=== PATIENT | female | born 1995 | race Caucasian/White ===

== ENCOUNTER 2016-08-25 11:29 | Emergency (ER) | payer BC ==
[2016-08-25 12:06] VITALS: BP 95/61
--- NOTE | 2016-08-25 12:42 | UC ---
Throat Pain/Nasal Fernando HPI - HPI Summary HPI Summary: complaint of nasal congestion and cough that started 11 days ago sore throat for the first 4 days bilateral ear pain intermittent headaches for the last 3 days she has pain in her left teeth , left side of face and forehead denies fever and chills, N/Vd, muscle achiness has been taking gabriel-seltzer sinus without relief, mucinex and nyquil which is helpful - History of Current Complaint Chief Complaint: UCRespiratory Stated Complaint: SINUS Time Seen by Provider: 08/25/16 12:36 Hx Obtained From: Patient Hx Last Menstrual Period: 08/10/16 - Allergies/Home Medications Allergies/Adverse Reactions: Allergies Allergy/AdvReac Type Severity Reaction Status Date / Time No Known Allergies Allergy Verified 08/25/16 12:07 Home Medications: Home Medications Norgestimate-Eth Estradiol(NF) [Ortho Tri-Cyclen (NF)] 1 tab PO DAILY 08/25/16 [ History Confirmed 08/25/16] PMH/Surg Hx/FS Hx/Imm Hx Previously Healthy: Yes - Surgical History Surgical History: None - Family History Known Family History: Positive: Hypertension - mother Negative: Cardiac Disease, Diabetes - Social History Occupation: Student Alcohol Use: Occasionally Substance Use Type: None Smoking Status (MU): Never Smoked Tobacco Review of Systems Constitutional: Negative Skin: Negative Eyes: Negative ENT: Sore Throat, Ear Ache, Nasal Discharge Respiratory: Cough Cardiovascular: Negative Gastrointestinal: Negative Genitourinary: Negative Motor: Negative Neurovascular: Negative Musculoskeletal: Negative Neurological: Headache Psychological: Negative All Other Systems Reviewed And Are Negative: Yes Physical Exam Triage Information Reviewed: Yes Appearance: No Pain Distress, Well-Nourished Vital Signs: Initial Vital Signs Temp 99.8 F 08/25/16 11:59 Pulse 86 08/25/16 11:59 Resp 16 08/25/16 11:59 BP 95/61 08/25/16 11:59 Pulse Ox 97 08/25/16 11:59 Vital Signs Reviewed: Yes Eyes: Positive: Conjunctiva Clear ENT: Positive: Pharyngeal erythema, Nasal congestion, Nasal drainage, TM bulging , TM red, Other: - maxillary and frontal sinus tednerness L > R Neck: Positive: No Lymphadenopathy Respiratory: Positive: Lungs clear, Normal breath sounds, No respiratory distress Cardiovascular: Positive: RRR, No Murmur, Pulses Normal Abdomen Description: Positive: Nontender, No Organomegaly, Soft Bowel Sounds: Positive: Present Musculoskeletal Exam: Normal Neurological: Positive: Alert Psychological Exam: Normal Skin Exam: Normal Throat Pain/Nasal Course/Dx - Course Course Of Treatment: examcmpleted. will treat for secondary infection otitis media bilaterally and sinusitis - Differential Dx/Diagnosis Differential Diagnosis/HQI/PQRI: Otitis Media, Sinusitis, URI Provider Diagnoses: otits media bilaterally, sinusitis Discharge - Discharge Plan Condition: Stable Disposition: HOME Prescriptions: Amoxicillin/Clavulanate TAB* [Augmentin TAB 875*] 875 mg PO BID #20 tab Patient Education Materials: Otitis Media (ED), Sinusitis (ED) Additional Instructions: Please take antibiotic as directed Increase fluids and rest Take acetaminophen or ibuprofen for fever or pain Please review your discharge instructions. If your symptoms do not improve please call your primary care provider or return to urgent care.
== END 2016-08-25 12:52 | disposition home or self-care (01) ==
LOC: UCCORT 11:29
DX: J32.9 Chronic sinusitis, unspecified (principal); H66.93 Otitis media, unspecified, bilateral
CPT/HCPCS: 99212; G0463

== ENCOUNTER 2017-01-09 12:02 | Emergency (ER) | payer BC ==
[2017-01-09 12:20] VITALS: BP 103/62
--- NOTE | 2017-01-09 12:30 | UC ---
General HPI - HPI Summary HPI Summary: 21 yo female presents with c/o approx 4 days progressively worse sinus congestion, sinus pressure, cough (min productive). + cold, w/o fever perse. No GI issues reported. Hx similar last year, with similar sx but progressed to ear infection and bronchitis, hoping to avoid this if possible. No rash. - History of Current Complaint Chief Complaint: UCGeneralIllness Stated Complaint: ALVARADO,SINUS COMPLAINT Time Seen by Provider: 01/09/17 12:16 Hx Obtained From: Patient Hx Last Menstrual Period: 01/09/17 - Allergy/Home Medications Allergies/Adverse Reactions: Allergies Allergy/AdvReac Type Severity Reaction Status Date / Time Bee Venom Allergy Anaphylatic Verified 01/09/17 12:15 Shock Home Medications: Home Medications Epinephrine [Epipen 2-Jessa] 1 inj PRN 01/09/17 [History] PMH/Surg Hx/FS Hx/Imm Hx Previously Healthy: Yes - Surgical History Surgical History: None - Family History Known Family History: Positive: Hypertension - mother Negative: Cardiac Disease, Diabetes - Social History Alcohol Use: Occasionally Substance Use Type: None Smoking Status (MU): Never Smoked Tobacco - Immunization History Most Recent Influenza Vaccination: NOT YET 2017 Review of Systems Constitutional: Other - see hpi Skin: Negative Eyes: Negative ENT: Nasal Discharge, Sinus Congestion, Sinus Pain/Tenderness Respiratory: Cough Cardiovascular: Negative Gastrointestinal: Negative Genitourinary: Negative Motor: Negative Neurovascular: Negative Musculoskeletal: Negative Neurological: Negative Psychological: Negative Is Patient Immunocompromised?: No All Other Systems Reviewed And Are Negative: Yes Physical Exam Triage Information Reviewed: Yes Appearance: Well-Nourished - sitting up. Conversing easily and appropriately. NAD. Nontoxic appearance. Sounds congested. Vital Signs: Initial Vital Signs Temp 98.3 F 01/09/17 12:16 Pulse 66 01/09/17 12:16 Resp 16 01/09/17 12:16 BP 103/62 01/09/17 12:16 Pulse Ox 99 01/09/17 12:16 Vital Signs Reviewed: Yes Eye Exam: Normal ENT: Positive: Pharyngeal erythema, TM dull - mcintosh. not erythematous. Neck exam: Normal Neck: Positive: Supple, Nontender, No Lymphadenopathy Respiratory Exam: Normal Respiratory: Positive: Chest non-tender, Lungs clear, Normal breath sounds, No respiratory distress, No accessory muscle use Cardiovascular Exam: Normal Cardiovascular: Positive: RRR, No Murmur, Pulses Normal, Brisk Capillary Refill Abdominal Exam: Normal Abdomen Description: Positive: Nontender Musculoskeletal Exam: Normal Neurological Exam: Normal - nonfocal, grossly normal Psychological Exam: Normal Skin Exam: Normal Course/Dx - Course Course Of Treatment: no new problems in ccc. D/w pt s/sx. Azithromcycin e- scribed, she will wait until tomorrow to fill. F/u PCP per routine. Seek medical attention for worse or new problems in the meantime. OTC cold medications per packaging instructions (but avoid decongestants at bedtime), do not mix cold medications. - Differential Dx - Multi-Symptom Provider Diagnoses: rhinosinusitis Discharge - Discharge Plan Condition: Stable Disposition: HOME Prescriptions: Azithromyxin JESSA (NF) [Z-Jessa (Zithromax) 250 mg tabs #6] 2 tab PO .TODAY, THEN 1 DAILY #6 tab Patient Education Materials: Rhinosinusitis (ED) Referrals: Markell Mary MD [Primary Care Provider] - Additional Instructions: Follow up with your primary care physician per routine. Seek medical attention sooner for worse or new problems. If you take the antibiotic, use a backup method for the entire menstrual cycle ( control).
== END 2017-01-09 12:40 | disposition home or self-care (01) ==
LOC: UCCORT 12:02
DX: J32.9 Chronic sinusitis, unspecified (principal)
CPT/HCPCS: 99212; G0463

== ENCOUNTER 2017-07-30 12:48 | Emergency (ER) | payer BC ==
[2017-07-30 13:56] VITALS: BP 98/62
--- NOTE | 2017-07-30 14:06 | UC ---
Throat Pain/Nasal Fernando HPI - HPI Summary HPI Summary: Right ear pain,right side of throat sore. no fevers - History of Current Complaint Chief Complaint: UCEar Stated Complaint: ST,RIGHT EAR Time Seen by Provider: 07/30/17 14:00 Hx Obtained From: Patient Hx Last Menstrual Period: 07/06/17 ?: No Onset/Duration: Sudden Onset, Lasting Days, Still Present Severity: Moderate Pain Intensity: 6 Pain Scale Used: 0-10 Numeric Cough: None - Allergies/Home Medications Allergies/Adverse Reactions: Allergies Allergy/AdvReac Type Severity Reaction Status Date / Time bee venom protein (honey bee) Allergy Anaphylatic Verified 07/30/17 13:52 Shock PMH/Surg Hx/FS Hx/Imm Hx Previously Healthy: Yes - Surgical History Surgical History: Yes Surgery Procedure, Year, and Place: wisdom teeth - Family History Known Family History: Positive: Hypertension - mother Negative: Cardiac Disease, Diabetes - Social History Occupation: Student Lives: With Family Alcohol Use: Rare Substance Use Type: None Smoking Status (MU): Never Smoked Tobacco - Immunization History Most Recent Influenza Vaccination: NOT YET 2017 Review of Systems Constitutional: Negative Skin: Negative Eyes: Negative ENT: Sore Throat - right side, Ear Ache - right Respiratory: Negative Cardiovascular: Negative Gastrointestinal: Negative Genitourinary: Negative Motor: Negative Neurovascular: Negative Musculoskeletal: Negative Neurological: Negative Psychological: Negative Is Patient Immunocompromised?: No All Other Systems Reviewed And Are Negative: Yes Physical Exam Triage Information Reviewed: Yes Appearance: Well-Appearing, No Pain Distress, Well-Nourished Vital Signs: Initial Vital Signs Temp 98.2 F 07/30/17 13:49 Pulse 72 07/30/17 13:49 Resp 14 07/30/17 13:49 BP 98/62 07/30/17 13:49 Pulse Ox 100 07/30/17 13:49 Vital Signs Reviewed: Yes Eye Exam: Normal Eyes: Positive: Conjunctiva Clear ENT Exam: Normal ENT: Positive: Normal ENT inspection, Hearing grossly normal, Pharynx normal, Pharyngeal erythema, Nasal congestion, TMs normal, TM bulging, TM dull - Right TM has fluid behind it, Tonsillar swelling, Sinus tenderness, Uvula midline. Negative: Trismus, Muffled voice, Hoarse voice, Dental tenderness Dental Exam: Normal Neck exam: Normal Neck: Positive: Supple, Nontender, No Lymphadenopathy Respiratory Exam: Normal Respiratory: Positive: Chest non-tender, Lungs clear, Normal breath sounds, No respiratory distress, No accessory muscle use Cardiovascular Exam: Normal Cardiovascular: Positive: RRR, No Murmur, Pulses Normal, Brisk Capillary Refill Musculoskeletal Exam: Normal Musculoskeletal: Positive: Strength Intact, ROM Intact, No Edema Neurological Exam: Normal Neurological: Positive: Alert, Muscle Tone Normal Psychological Exam: Normal Psychological: Positive: Normal Response To Family, Age Appropriate Behavior, Abnormal Response To Family, Decreased Age Appropriate Behavior Skin Exam: Normal Diagnostics - Laboratory Diagnostic Studies Completed/Ordered: RST (-) Throat Pain/Nasal Course/Dx - Course Assessment/Plan: Mucinex D, Tylenol ibuprofen follow with PCP when necessary - Differential Dx/Diagnosis Provider Diagnoses: Right serous otitis, pharyngitis Discharge - Sign-Out/Discharge Documenting (check all that apply): Discharge - Discharge Plan Condition: Stable Disposition: HOME Patient Education Materials: Decongestant/Expectorant (By mouth), Ibuprofen ( By mouth), Upper Respiratory Infection (ED) Referrals: Markell Mary MD [Primary Care Provider] - If Needed - Billing Disposition and Condition Condition: STABLE Disposition: HOME
== END 2017-07-30 14:40 | disposition home or self-care (01) ==
LOC: UCCORT 12:48
DX: H65.91 Unspecified nonsuppurative otitis media, right ear (principal); J02.9 Acute pharyngitis, unspecified
CPT/HCPCS: 87651; 99212; G0463

== ENCOUNTER 2017-08-25 10:52 | Emergency (ER) | payer BC ==
[2017-08-25 11:14] VITALS: BP 102/67
--- NOTE | 2017-08-25 11:38 | UC ---
Throat Pain/Nasal Fernando HPI - HPI Summary HPI Summary: Pt c/o nasal congestion, cough, sinus pressure an dpain. Pt has been using OTC mucinex and decongestant with no improvement. - History of Current Complaint Chief Complaint: UCRespiratory Stated Complaint: SINUS Time Seen by Provider: 08/25/17 11:16 Hx Obtained From: Patient Hx Last Menstrual Period: 2 weeks ?: No Onset/Duration: Sudden Onset, Lasting Days, Still Present Severity: Mild Pain Intensity: 3 Cough: Nonproductive Associated Signs & Symptoms: Positive: Sinus Discomfort - Epiglottits Risk Factors Epiglottis Risk Factors: Sudden Onset - Allergies/Home Medications Allergies/Adverse Reactions: Allergies Allergy/AdvReac Type Severity Reaction Status Date / Time bee venom protein (honey bee) Allergy Anaphylatic Verified 08/25/17 11:15 Shock Home Medications: Home Medications Guaifenesin/Dm/Pseudoephedrine [Maxifed Dm Liquid] 473 ml PO QPM PRN 08/25/17 [ History Confirmed 08/25/17] PMH/Surg Hx/FS Hx/Imm Hx Previously Healthy: Yes - Surgical History Surgical History: Yes Surgery Procedure, Year, and Place: wisdom teeth - Family History Known Family History: Positive: Hypertension - mother Negative: Cardiac Disease, Diabetes - Social History Occupation: Student Lives: With Family Alcohol Use: Occasionally Substance Use Type: None Smoking Status (MU): Never Smoked Tobacco Have You Smoked in the Last Year: No - Immunization History Most Recent Influenza Vaccination: NOT YET 2017 Review of Systems Constitutional: Chills Skin: Negative Eyes: Negative ENT: Sinus Congestion, Sinus Pain/Tenderness Respiratory: Cough Cardiovascular: Negative Gastrointestinal: Negative Genitourinary: Negative Motor: Negative Neurovascular: Negative Musculoskeletal: Negative Neurological: Headache Psychological: Negative Is Patient Immunocompromised?: No All Other Systems Reviewed And Are Negative: Yes Physical Exam Triage Information Reviewed: Yes Appearance: Ill-Appearing Vital Signs: Initial Vital Signs Temp 98.4 F 08/25/17 11:06 Pulse 89 08/25/17 11:06 Resp 18 08/25/17 11:06 BP 102/67 08/25/17 11:06 Pulse Ox 100 08/25/17 11:06 Vital Signs Reviewed: Yes Eye Exam: Normal ENT Exam: Other ENT: Positive: Nasal congestion, TM bulging, Sinus tenderness Dental Exam: Normal Neck exam: Normal Respiratory Exam: Normal Cardiovascular Exam: Normal Musculoskeletal Exam: Normal Neurological Exam: Normal Psychological Exam: Normal Skin Exam: Normal Throat Pain/Nasal Course/Dx - Differential Dx/Diagnosis Differential Diagnosis/HQI/PQRI: Sinusitis, URI Provider Diagnoses: sinusitis Discharge - Sign-Out/Discharge Documenting (check all that apply): Discharge/Admit/Transfer - Discharge Plan Condition: Stable Disposition: HOME Prescriptions: Amoxicillin PO (*) [Amoxicillin 875 MG (*)] 875 mg PO BID #20 tab Patient Education Materials: Sinusitis (ED) Referrals: Markell Mary MD [Primary Care Provider] - If Needed - Billing Disposition and Condition Condition: STABLE Disposition: HOME
== END 2017-08-25 11:48 | disposition home or self-care (01) ==
LOC: UCCORT 10:52
DX: J32.9 Chronic sinusitis, unspecified (principal)
CPT/HCPCS: 99212; G0463

== ENCOUNTER 2018-07-31 14:45 | Emergency (ER) | payer BC ==
[2018-07-31 15:09] VITALS: BP 106/62
--- NOTE | 2018-07-31 15:20 | UC ---
Eye Complaint HPI - HPI Summary HPI Summary: pt states she had a small sty to her R upper lid that resolved but then another came back 1 week ago. despite warm compressing and otc sty tx, it is worsening. no fever or hx MRSA. - History of Current Complaint Chief Complaint: UCSkin Stated Complaint: RIGHT EYE CONCERN Time Seen by Provider: 07/31/18 15:06 Hx Obtained From: Patient Hx Last Menstrual Period: 3 weeks Onset/Duration: Gradual Onset Timing: Constant Pain Intensity: 1 Aggravating Factor(s): Blinking Alleviating Factor(s): Nothing Associated Signs And Symptoms: Negative: Photophobia, Drainage (Clear), Vision Impairment Bilateral - Allergies/Home Medications Allergies/Adverse Reactions: Allergies Allergy/AdvReac Type Severity Reaction Status Date / Time bee venom protein (honey bee) Allergy Severe Anaphylatic Verified 07/31/18 15:09 Shock PMH/Surg Hx/FS Hx/Imm Hx Previously Healthy: Yes - Surgical History Surgical History: Yes Surgery Procedure, Year, and Place: wisdom teeth - Family History Known Family History: Positive: Hypertension - mother Negative: Cardiac Disease, Diabetes - Social History Occupation: Employed Full-time Alcohol Use: Occasionally Substance Use Type: None Smoking Status (MU): Never Smoked Tobacco Have You Smoked in the Last Year: No - Immunization History Most Recent Influenza Vaccination: NOT YET 2017 Vaccination Up to Date: Yes Review of Systems All Other Systems Reviewed And Are Negative: Yes Skin: Positive: Rash - R upper eye lid Eyes: Negative: Blurred Vision, Diplopia, Drainage, Eye Redness, Photophobia Physical Exam Triage Information Reviewed: Yes Appearance: Well-Appearing Vital Signs: Initial Vital Signs Temp 98.3 F 07/31/18 15:03 Pulse 69 07/31/18 15:03 Resp 18 07/31/18 15:03 BP 106/62 07/31/18 15:03 Pulse Ox 99 07/31/18 15:03 Vital Signs Reviewed: Yes Eyes: Positive: Other: - No auricular adenopathy. R upper lid has a central area of swelling and erythema at the lash line but no fluctuance. The upper lid has some mild erythema as well. Th R lower lid and L lids are unremarkable. PERRL, EOMI and painless, AC clear, conjunctiva are clear. R lids everted and no FB's. ENT: Positive: Pharynx normal, TMs normal. Negative: Nasal drainage Neck: Positive: Supple, Nontender, No Lymphadenopathy Respiratory: Positive: Lungs clear Cardiovascular: Positive: RRR Abdomen Description: Positive: Nontender Musculoskeletal: Positive: ROM Intact Neurological: Positive: Alert Psychological: Positive: Age Appropriate Behavior Skin Exam: Normal Eye Complaint Course/Dx - Differential Dx/Diagnosis Differential Diagnosis/HQI/PQRI: Other - globes are unremarkable. no concern for orbital cellulitis. R upper lid sty with mild secondary superficial skin infection and no hx MRSA. Provider Diagnosis: Sty, Cellulitis Discharge - Sign-Out/Discharge Documenting (check all that apply): Patient Departure All imaging exams completed and their final reports reviewed: No Studies - Discharge Plan Condition: Stable Disposition: HOME Prescriptions: Cephalexin CAP* [Keflex CAP*] 500 mg PO TID 10 Days #30 cap Erythromycin OPTH OINT* [Erythromycin 0.5% OPTH OINT*] 1 applic RIGHT EYE TID 7 Days #1 ophth.oint Patient Education Materials: Cellulitis (DC), Stye (ED) Referrals: Markell Mary MD [Primary Care Provider] - 5 Days Huong Ochoa MD [Medical Doctor] - Additional Instructions: FOLLOW UP WITH DR OCHOA(OPTHAMOLOGY) IF THE LOCALIZED SWELLING GETS ANY WORSE. - Billing Disposition and Condition Condition: STABLE Disposition: Home - Attestation Statements Provider Attestation: I was available for consult. This patient was seen by the ÁLVARO. The patient was not presented to, seen by, or examined by me. -Robina
== END 2018-07-31 15:31 | disposition home or self-care (01) ==
LOC: UCCORT 14:45
DX: H00.011 Hordeolum externum right upper eyelid (principal); H00.031 Abscess of right upper eyelid; Z91.030 Bee allergy status
CPT/HCPCS: 99212; G0463